=== PATIENT | female | born 1990 | race Caucasian/White ===

== ENCOUNTER 2017-12-19 12:33 | Inpatient (IN) | payer OTHER ==
[~2017-12-19] VITALS: Ht 165.1 cm; Wt 79.0 kg
--- NOTE | ~2017-12-19 | OR ---
[facility] [address] [facility] [place] [address] Draft DATE OF OPERATION: 01/09/2018 SURGEON: Pretty Allen MD PULMONARY NURSE PRACTITIONER: Connie Sweeney DO. PREOPERATIVE DIAGNOSES: Term , low-lying placenta. POSTOPERATIVE DIAGNOSES: Term , low-lying placenta, delivered. PROCEDURE PERFORMED: Primary section with low-segment transverse uterine incision. ANESTHESIA: Spinal. ESTIMATED BLOOD LOSS: 600 mL. DRAINS: Kincaid catheter. INDICATIONS AND FINDINGS: The patient is a 27-year-old female, 2, para 1, who has been found to have a low-lying placenta, which did not improve over the course of her . Her last ultrasound done few weeks ago again showed that the placenta was 1.5 cm of the cervical os. She has not had any bleeding. The patient was extensively counseled and the decision was made to proceed with primary section. She was taken to the operating room, where she was delivered of a little girl from the ROT position via lower segment transverse uterine incision with Apgars of 8 and 8 and weight is pending. The uterus, tubes, and ovaries appeared normal. The placenta was low-lying in posterior. DESCRIPTION OF PROCEDURE: The patient was prepped and draped in the supine position. A Pfannenstiel skin incision was made and carried down through the fascia. The incision was extended laterally. The inferior and superior fascial flaps were then created. The muscles were bluntly divided and the peritoneum opened bluntly and the incision extended superiorly and inferiorly. PATIENT NAME: FAUSTINO MERCEDES OPERATIVE REPORT DATE OF : 86 REPORT #: [id number] PHYSICIAN: PRETTY ALLEN MD PCP: PRETTY ALLEN MD REPORT IS CONFIDENTIAL AND NOT TO BE RELEASED WITHOUT AUTHORIZATION [facility] [address] [place], [place] [address] Draft The Saturnino retractor was placed and the uterine incision was made at the upper aspect of the peritoneal reflection. The uterus was scored and the baby delivered with the above findings. There was clear fluid at delivery. Following this, the placenta was removed manually. The uterus was explored with a lap tape assuring no remaining fragments. The edges of the incision were identified and the uterus was closed in 2 layers using #0 Monocryl. The first layer was a running locking stitch and 2nd was a vertical imbricating stitch. Some bleeding points on the peritoneal edges were controlled with cautery. The abdomen was then copiously irrigated and inspected and seen to be hemostatic. The retractor was then removed and the peritoneum identified. An ACell graft was laid over the lower segment to aid in healing. The peritoneum was then closed with a running suture of #3-0 Vicryl. The muscles were brought out together with interrupted sutures of #0 Vicryl. Bleeding points on the muscle were controlled with cautery. This layer was then irrigated and inspected and seen to be hemostatic as well. ACell powder was sprinkled over this layer to aid in healing. The fascia was then closed from each angle to the midline with a running suture of #0 Vicryl. The subcutaneous tissue was irrigated and inspected and bleeding points were controlled with cautery. The subcutaneous layer was brought together with interrupted sutures of #3-0 Vicryl. The skin was closed with yary. All sponge and needle counts were correct. She tolerated the procedure well and was taken to the recovery room in good condition. MD NOELLE Felton/KIESHAL /[id number] cc: Connie Sweeney DO Copies: CONNIE SWEENEY DO ~ PATIENT NAME: FAUSTINO MERCEDES OPERATIVE REPORT DATE OF : 86 REPORT #: [id number] PHYSICIAN: PRETTY ALLEN MD PCP: PRETTY ALLEN MD REPORT IS CONFIDENTIAL AND NOT TO BE RELEASED WITHOUT AUTHORIZATION
[~2017-12-19 12:33] MED LIST: IBUPROFEN800 MG PO; MIRENA1 EACH IY; NORCO 5-325 TA1 EACH PO; SPRINTEC1 EACH PO
--- NOTE | 2018-01-09 08:44 | NUR ---
01/09/18 0844 Katherine Thomas 0822 PT ARRIVED TO PACU DROWSY ON RA, RESP EVEN AND UNLABORED. 0840 PT DENIES NAUSEA, PT REPORTS PAIN 5/10. BABY TO CHEST AND PT RESTING IN BED.
--- NOTE | 2018-01-09 12:43 | NUR ---
CONNECTED WITH PT'S MOTHER-THE HAPPY NEW GMOTHER. SHE HAD HER GRANDSON IN [place], GOING IN TO MEET HIS NEW SISTER. GOD BLESS THEM
--- NOTE | 2018-01-10 09:45 | PR ---
[facility] [address] [facility] [place], [place] [address] Signed PP Progress Notes Datetime Report Generated by CANDELARIA: 01/10/2018 09:45 SUBJECTIVE: [id number] Pain: Within normal limits Nausea/Vomiting: Denies Flatus: Yes Vital Signs: [id number] Vital Signs: Reviewed; Within Normal Limits EXAM: [id number] Cardiovascular: Normal Respiratory: Normal Abdomen/Uterus: Abnormal Lochia: Normal Vulva/Perineum: Not Done Incision: Normal Progress: Normal Exam Comments: Abdomen with active BS. Fundus firm, NT @ U-1. H/H 9.9/28.7, WBC 10.4, plat 218k IMPRESSION/PLAN/PROCEDURES: [id number] Impression: Normal progression Other Plans: Ambulate, shower Progress Notes: Doing well. Will increase ambulation today with probable D/C tomorrow. Signing Physician: Pretty Allen MD Copies: ~ *Electronically Signed* 01/10/18 0945 PRETTY ALLEN MD PATIENT NAME: FAUSTINO MERCEDES PROGRESS NOTE DATE OF : 86 PHYSICIAN: PRETTY ALLEN MD RPT #: [id number] REPORT IS CONFIDENTIAL AND NOT TO BE RELEASED WITHOUT AUTHORIZATION
--- NOTE | 2018-01-11 08:55 | PR ---
[facility] [address] [facility] [place], [place] [address] Signed PP Progress Notes Datetime Report Generated by CPLisa: 01/11/2018 08:55 SUBJECTIVE: [id number] Pain: Within normal limits Nausea/Vomiting: Denies Flatus: Yes Vital Signs: [id number] Vital Signs: Reviewed; Within Normal Limits EXAM: [id number] Cardiovascular: Not Done Respiratory: Not Done Abdomen/Uterus: Abnormal Lochia: Normal Vulva/Perineum: Not Done Breasts: Not Done CVA Tenderness: Not Done Extremities: Normal Incision: Normal Progress: Abnormal Exam Comments: Abdomen with active BS. Fundus firm, NT @ U-1. IMPRESSION/PLAN/PROCEDURES: [id number] Impression: Normal progression Plan: Remove yary; Discharge Other Plans: Ambulate, shower Procedures: None Progress Notes: Doing well. She is ready for D/C. Signing Physician: rPetty Allen MD Copies: ~ *Electronically Signed* 01/11/18 0855 PRETTY ALLEN MD PATIENT NAME: FAUSTINO MERCEDES PROGRESS NOTE DATE OF : 86 PHYSICIAN: PRETTY ALLEN MD RPT #: [id number] REPORT IS CONFIDENTIAL AND NOT TO BE RELEASED WITHOUT AUTHORIZATION
== END 2018-01-11 13:15 | disposition home or self-care (01) | DRG 766 ==
LOC: FBC 01-09 05:04
PROVIDERS: ADMIT Obstetrics & Gynecology
PROC: 10D00Z1 Extraction of Products of Conception, Low, Open Approach (ICD-10-PCS; principal; 2018-01-09 06:45)
DX: O44.43 Low lying placenta NOS or without hemorrhage, third trimester (principal); O34.43 Maternal care for other abnormalities of cervix, third trimester; O32.2XX0 Maternal care for transverse and oblique lie, not applicable or unspecified; O99.02 Anemia complicating childbirth; D64.9 Anemia, unspecified; Z86.19 Personal history of other infectious and parasitic diseases; Z3A.39 39 weeks gestation of pregnancy; Z37.0 Single live birth
CPT/HCPCS: 01961; 36415; 85027; C1763; J0131; J0690; J1100; J1885; J2274; J2370; J2405; J2590; J3010; J7120

== ENCOUNTER 2022-05-24 19:25 | Emergency (ER) | payer OTHER ==
[~2022-05-24] VITALS: Ht 165.1 cm; Wt 97.0 kg
[2022-05-24] MEDS ORDERED: ULTRAM50 MG PO (20:03)
== END 2022-05-24 20:28 | disposition home or self-care (01) ==
LOC: ED 19:25
DX: S82.61XA Displaced fracture of lateral malleolus of right fibula, initial encounter for closed fracture (principal); Z87.891 Personal history of nicotine dependence; X50.1XXA Overexertion from prolonged static or awkward postures, initial encounter
CPT/HCPCS: 73610; 99283-25; A9270